=== PATIENT | female | born 1985 | race African-American/Black ===

== ENCOUNTER 2016-11-27 19:47 | Emergency (ER) | payer OTHER ==
[~2016-11-27] VITALS: Ht 170.2 cm; Wt 90.7 kg
--- NOTE | 2016-11-27 20:23 | PHYS DOC ---
Past Medical History Past Medical History: Asthma, GERD, Other Additional Past Medical Histor: LUPUS, ENLARGED LIVER, HEART MURMUR Past Surgical History: Tubal ligation Alcohol Use: Occasionally Drug Use: None Adult General Chief Complaint Chief Complaint: CHEST PAIN HPI HPI Patient is a 31 year old female who presents with chest pain. Patient reports for the past 3 weeks she has been having substernal chest pain. She describes a "piercing" pain that waxes and wanes without clear mitigating factors. She has tried taking ranitidine and ibuprofen with insufficient relief. No SOB. Patient has had similar pain in the past. No other acute complaints. Review of Systems Review of Systems Constitutional: Denies fever or chills Eyes: Denies change in visual acuity or eye pain HENT: Denies nasal congestion or sore throat Respiratory: Denies cough or shortness of breath Cardiovascular: Substernal chest pain GI: Denies abdominal pain, nausea, vomiting, bloody stools or diarrhea : Denies dysuria or hematuria Musculoskeletal: Denies back pain or joint pain Integument: Denies rash or skin lesions Neurologic: Denies headache, focal weakness or sensory changes Allergies Allergies Allergies Coded Allergies Type Severity Reaction Last Updated Verified Penicillins Allergy Severe Anaphylaxis 01/29/15 Yes Physical Exam Physical Exam Constitutional: Well developed, well nourished, no acute distress, non-toxic appearance HENT: Normocephalic, atraumatic, bilateral external ears normal Eyes: EOMI, conjunctiva normal, no discharge Neck: Normal range of motion, no stridor Cardiovascular: Heart rate normal, regular rhythm, murmur noted Lungs & Thorax: Bilateral breath sounds clear to auscultation Abdomen: Bowel sounds normal, soft, non-distended, no TTP Skin: Warm, dry, no erythema, no rash Extremities: No obvious deformity, no edema Neurologic: Alert and oriented X 3, no gross deficits noted Current Patient Data Vital Signs Vital Signs Date Time Temp Pulse Resp B/P Pulse Ox O2 Delivery O2 Flow Rate FiO2 11/27/16 19:58 98.0 68 17 117/56 99 Room Air 98.0 Lab Values Laboratory Tests Test 11/27/16 20:05 11/27/16 20:48 White Blood Count 3.7x10^3/uL (4.0-11.0) L Red Blood Count 4.14x10^6/uL (3.50-5.40) Hemoglobin 11.4g/dL (12.0-15.5) L Hematocrit 35.7% (36.0-47.0) L Mean Corpuscular Volume 86fL (79-100) Mean Corpuscular Hemoglobin 28pg (25-35) Mean Corpuscular Hemoglobin Concent 32g/dL (31-37) Red Cell Distribution Width 13.0% (11.5-14.5) Platelet Count 244x10^3/uL (140-400) Neutrophils (%) (Auto) 24% (31-73) L Lymphocytes (%) (Auto) 60% (24-48) H Monocytes (%) (Auto) 15% (0-9) H Eosinophils (%) (Auto) 1% (0-3) Basophils (%) (Auto) 0% (0-3) Neutrophils # (Auto) 0.9x10^3uL (1.8-7.7) L Lymphocytes # (Auto) 2.2x10^3/uL (1.0-4.8) Monocytes # (Auto) 0.5x10^3/uL (0.0-1.1) Eosinophils # (Auto) 0.0x10^3/uL (0.0-0.7) Basophils # (Auto) 0.0x10^3/uL (0.0-0.2) Segmented Neutrophils % 28% (35-66) L Lymphocytes % 57% (24-48) H Atypical Lymphocytes % (Manual) 6% (0-0) H Monocytes % 9% (0-10) Platelet Estimate Adequate (ADEQUATE) Sodium Level 141mmol/L (136-145) Potassium Level 3.8mmol/L (3.5-5.1) Chloride Level 104mmol/L (98-107) Carbon Dioxide Level 30mmol/L (21-32) Anion Gap 7 (6-14) Blood Urea Nitrogen 15mg/dL (7-20) Creatinine 0.7mg/dL (0.6-1.0) Estimated GFR (Cockcroft-Gault) 117.3 Glucose Level 78mg/dL (70-99) Calcium Level 9.4mg/dL (8.5-10.1) Troponin I Quantitative < 0.017ng/mL (0.000-0.055) Urine Test Negative (NEG) Laboratory Tests 11/27/16 20:05 Laboratory Tests 11/27/16 20:05 EKG EKG EKG (my read): sinus rhythm, rate 64, normal axis, intervals wnl, no acute ischemic changes Radiology/Procedures Radiology/Procedures CXR (my read): No acute abnormality Course & Med Decision Making Course & Med Decision Making Pertinent Labs and Imaging studies reviewed. (See chart for details) Patient is 31 year old female who presents with chest pain. Low suspicion for ACS given age and atypical symptoms. More likely is related to GERD or costochondritis. Will check EKG, CXR, labs. Patient declines need for pain medication at this time. Labs unremarkable, including troponin wnl; mild leukopenia but patient says this is normal for her. EKG and CXR ok per my read. Discussed results with patient. Will plan discharge home with instructions for follow up for further evaluation as outpatient and strict return precautions. Dragon Disclaimer Dragon Disclaimer This electronic medical record was generated, in whole or in part, using a voice recognition dictation system. Departure Departure Impression: Primary Impression: Atypical chest pain Disposition: 01 HOME, SELF-CARE Condition: STABLE Referrals: NO PCP (PCP) Patient Instructions: Chest Pain (Nonspecific) Additional Instructions: Thank you for allowing us to provide care today in the Emergency Department. Schedule a follow up appointment with your primary care doctor as soon as possible. Return promptly to the Emergency Department if you develop any new or concerning symptoms. RON LANGLEY MD Nov 27, 2016 20:23
[2016-11-27 20:31] LABS: BASO % 0 % (0-3); EOS % 1 % (0-3); HEMATOCRIT 35.7 % (36.0-47.0); HEMOGLOBIN 11.4 g/dL (12.0-15.5); LYMPH # 2.2 x10^3/uL (1.0-4.8); LYMPH % 60 % (24-48); MEAN CORPUSCULAR HEMOGLOBIN 28 pg (25-35); MEAN CORPUSCULAR HGB CONC 32 g/dL (31-37); MEAN CORPUSCULAR VOLUME 86 fL (79-100); MONO % 15 % (0-9); NEUT % 24 % (31-73); PLATELET COUNT 244 x10^3/uL (140-400); RED BLOOD COUNT 4.14 x10^6/uL (3.50-5.40); WHITE BLOOD COUNT 3.7 x10^3/uL (4.0-11.0)
[2016-11-27 20:39] LABS: CALCIUM 9.4 mg/dL (8.5-10.1); CREATININE 0.7 mg/dL (0.6-1.0); GFR 117.3; POTASSIUM 3.8 mmol/L (3.5-5.1)
[2016-11-27 21:06] LABS: NEG OBC UR NEG; POS OBC UR POS
[2016-11-27 21:30] LABS: PLT ESTIMATE ADEQUATE (ADEQUATE)
[2016-11-27 22:30] VITALS: BP 105/59
--- NOTE | 2016-11-28 06:36 | EKG ---
[facility] [address] [place] [address] Test Date: 2016-11-27 Test Time: 19:59:51 Pat Name: EULA PINA Department: Room: Gender: F Dry Boss: : 1985 Requested By: RON LANGLEY Order Number: [id number] Reading MD: Leonardo Ruiz Measurements Intervals [place] Rate: 64 P: 39 ND: 186 QRS: 48 QRSD: 88 T: 24 QT: 372 QTc: 388 Interpretive Statements SINUS RHYTHM Electronically Signed On 11-28-2016 10:44:30 SENIOR PROCESS ENGINEER by Leonardo Ruiz
--- NOTE | 2016-11-28 08:32 | RAD ---
Chest, 2 views, 11/27/2016: History: Chest pain The heart size and pulmonary vascularity are normal. No pulmonary infiltrates are seen. There is no evidence of pleural fluid. IMPRESSION: No acute cardiopulmonary abnormality is detected.
== END 2016-11-27 22:37 | disposition home or self-care (01) ==
LOC: ER 19:47
DX: R07.89 Other chest pain (principal); J45.909 Unspecified asthma, uncomplicated; K21.9 Gastro-esophageal reflux disease without esophagitis; M32.9 Systemic lupus erythematosus, unspecified; R16.0 Hepatomegaly, not elsewhere classified; Z88.0 Allergy status to penicillin
CPT/HCPCS: 36415; 71020; 80048; 81025; 84484; 85007; 85027; 93005; 99285-25

== ENCOUNTER 2018-02-20 18:59 | Emergency (ER) | payer OTHER ==
[2018-02-20 20:22] LABS: URINE HCG POC HCG NEGATIVE (Negative)
[2018-02-20 20:46] LABS: BILIRUBIN,URINE NEGATIVE (NEG); CLARITY,URINE CLOUDY; COLOR,URINE YELLOW; GLUCOSE,URINE NEGATIVE (NEG); NITRITE,URINE NEGATIVE (NEG); PH,URINE 6.5; PROTEIN,URINE NEGATIVE (NEG-TRACE)
[2018-02-20] MEDS: LIDO:MAALOX 1:1 20 ML SINGLE DOSE. PO (20:46)
[2018-02-20 20:48] LABS: BASO % 0 % (0-3); EOS % 1 % (0-3); HEMATOCRIT 37.2 % (36.0-47.0); HEMOGLOBIN 12.5 g/dL (12.0-15.5); LYMPH # 1.9 x10^3/uL (1.0-4.8); LYMPH % 59 % (24-48); MEAN CORPUSCULAR HEMOGLOBIN 29 pg (25-35); MEAN CORPUSCULAR HGB CONC 34 g/dL (31-37); MEAN CORPUSCULAR VOLUME 86 fL (79-100); MONO # 0.4 x10^3/uL (0.0-1.1); MONO % 12 % (0-9); NEUT # 0.9 x10^3uL (1.8-7.7); NEUT % 27 % (31-73); PLATELET COUNT 251 x10^3/uL (140-400); RED BLOOD COUNT 4.34 x10^6/uL (3.50-5.40); RED CELL DISTRIBUTION WIDTH 12.7 % (11.5-14.5); WHITE BLOOD COUNT 3.2 x10^3/uL (4.0-11.0)
[2018-02-20 20:49] LABS: ADD MAN DIFF? YES
[2018-02-20 20:57] LABS: ANION GAP 3 (6-14); BLOOD UREA NITROGEN 21 mg/dL (7-20); BUN/CREATININE RATIO 26 (6-20); CALCIUM 9.5 mg/dL (8.5-10.1); CARBON DIOXIDE 31 mmol/L (21-32); CHLORIDE 103 mmol/L (98-107); CREATININE 0.8 mg/dL (0.6-1.0); GLUCOSE 106 mg/dL (70-99); POTASSIUM 3.6 mmol/L (3.5-5.1); RBC,URINE 0 /HPF (0-2); SODIUM 137 mmol/L (136-145)
[2018-02-20 20:58] LABS: AMORPHOUS SEDIMENT,UR PRESENT /HPF; BACTERIA,URINE 0 /HPF (0-FEW); SQUAMOUS EPITHELIAL CELL,UR MOD /LPF; WBC,URINE 0 /HPF (0-4)
[2018-02-20 20:59] LABS: BARBITURATES NEG (NEG); BENZODIAZEPINES NEG (NEG); CANNABINOIDS NEG (NEG); COCAINE NEG (NEG); METHADONE NEG (NEG); OPIATES NEG (NEG); PHENCYCLIDINE NEG (NEG)
[2018-02-20 21:00] LABS: AMPHETAMINE/METHAMPHETAMINE NEG (NEG); ETHANOL, URINE NEG (NEG)
[2018-02-20 21:02] LABS: ALBUMIN 3.5 g/dL (3.4-5.0); ALBUMIN/GLOBULIN RATIO 0.7 (1.0-1.7); ALK PHOS 56 U/L (46-116); ALT (SGPT) 18 U/L (14-59); AST (SGOT) 26 U/L (15-37); LIPASE 144 U/L (73-393); TOTAL BILIRUBIN 0.3 mg/dL (0.2-1.0); TOTAL PROTEIN 8.5 g/dL (6.4-8.2)
[2018-02-20 21:03] LABS: TROPONINI < 0.017 ng/mL (0.000-0.055)
[2018-02-20 21:07] LABS: NT-PRO BNP 7 pg/mL (0-124)
[2018-02-20 21:44] LABS: % BASOS 2 % (0-3); % LYMPHS 62 % (24-48); % MONOS 6 % (0-10); % SEGS 30 % (35-66); PLT ESTIMATE ADEQUATE (ADEQUATE)
[2018-02-20] MEDS ORDERED: IOHEXOL 300 MG/ML 100ML VIAL. IV (23:15)
[2018-02-20] MEDS ORDERED: CONTRAST GIVEN MC (23:15)
[2018-02-21] MEDS: fentaNYL PF VIAL 100 MCG/2 ML VIAL IV (00:25)
== END 2018-02-21 01:11 | disposition home or self-care (01) ==
LOC: ER 02-21 01:11
DX: K21.9 Gastro-esophageal reflux disease without esophagitis (principal); J45.909 Unspecified asthma, uncomplicated; M32.9 Systemic lupus erythematosus, unspecified; Z98.51 Tubal ligation status; Z88.0 Allergy status to penicillin
CPT/HCPCS: 36415; 71275; 74022; 80053; 80307; 81001; 81025; 83690; 83880; 84484; 85007; 85025; 93005; 96374; 99285-25; J3010

== ENCOUNTER 2018-11-22 08:47 | Emergency (ER) | payer MEDICAID, OTHER ==
[~2018-11-22] VITALS: Ht 170.2 cm; Wt 73.9 kg
[~2018-11-22 08:47] MED LIST: OMEP40CA5 PO
[2018-11-22 08:48] VITALS: BP 107/54
[2018-11-22] MEDS ORDERED: NAPROXEN 500 MG TABLET PO STA (09:01)
--- NOTE | 2018-11-22 09:04 | PHYS DOC ---
Past Medical History Past Medical History: Asthma, Other Additional Past Medical Histor: LUPUS (MARYLIN YEPEZ APRN) Past Surgical History: Tubal ligation (MARYLIN YEPEZ APRN) Alcohol Use: None Drug Use: None (MARYLIN YEPEZ APRN) Adult General Chief Complaint Chief Complaint: BACK PAIN - NO INJURY HPI HPI Patient is a 33 year old female with history of lupus who presents today complaining of 10 out of 10 constant sharp low back pain that began last night while she was sitting. Patient states the pain is worse on certain movements. Patient states she has tried taking ibuprofen with no relief. Patient denies any. Denies any loss of bowel bladder function. Denies any pain radiating to bilateral lower extremities. Denies any weakness. (MARYLIN YEPEZ APRN) Review of Systems Review of Systems Constitutional: Denies fever or chills [] GI: Denies abdominal pain, nausea, vomiting, bloody stools or diarrhea [] : Denies dysuria or hematuria [] Musculoskeletal: Reports low back pain Integument: Denies rash or skin lesions [] Neurologic: Denies headache, focal weakness or sensory changes [] All other systems were reviewed and found to be within normal limits, except as documented in this note. (MARYLIN YEPEZ APRN) Current Medications Current Medications Current Medications Medications (Trade) Dose Ordered Sig/Fredy Start Time Stop Time Status Last Admin Dose Admin Acetaminophen/ Hydrocodone Bitart (Lortab 5/325) 2 tab 1X ONCE 11/22/18 09:15 11/22/18 09:16 DC 11/22/18 09:32 2 TAB Cyclobenzaprine HCl (Flexeril) 10 mg 1X ONCE 11/22/18 09:15 11/22/18 09:16 DC 11/22/18 09:32 10 MG Naproxen (Naprosyn) 500 mg 1X STAT 11/22/18 09:01 11/22/18 09:10 DC 11/22/18 09:30 500 MG Prednisone (Prednisone) 50 mg 1X ONCE 11/22/18 09:15 11/22/18 09:16 DC 11/22/18 09:31 50 MG (LYN CASPER MD) Allergies Allergies Allergies Coded Allergies Type Severity Reaction Last Updated Verified Penicillins Allergy Severe Anaphylaxis 01/29/15 Yes (LYN CASPER MD) Physical Exam Physical Exam Constitutional: Well developed, well nourished, no acute distress, non-toxic appearance. [] Abdomen: Bowel sounds normal, soft, no tenderness, no masses, no pulsatile masses. [] Skin: Warm, dry, no erythema, no rash. [] Back: Diffuse paraspinal muscle tenderness to bilateral lower lumbar spine, moderate tenderness on the coccyx, no CVA tenderness. [] Extremities: No tenderness, no cyanosis, no clubbing, ROM intact, no edema. [] Neurologic: Alert and oriented X 3, normal motor function, normal sensory function, no focal deficits noted. [] Psychologic: Affect normal, judgement normal, mood normal. [] (MARYLIN YEPEZ APRN) Current Patient Data Vital Signs Vital Signs Date Time Temp Pulse Resp B/P (MAP) Pulse Ox O2 Delivery O2 Flow Rate FiO2 11/22/18 09:32 16 100 Room Air 11/22/18 08:48 98.2 71 107/54 (71) 98.2 (LYN CASPER MD) EKG EKG [] (MARYLIN YEPEZ APRN) Radiology/Procedures Radiology/Procedures []PROCEDURE: LUMBAR SPINE 2-3V LUMBAR SPINE 2-3V History: Low back pain, posterior right hip pain Comparison: None. Findings: 3 views lumbar spine are submitted. There is very mild dextro scoliosis centered near L2. Lumbar vertebral body stature and AP alignment are preserved. Intervertebral disc spaces are adequate. No acute osseous abnormality is identified by radiographs. Impression: 1. No acute osseous abnormality is identified by radiographs. There is very mild dextroscoliosis. Electronically signed by: Blaise Lanza MD (11/22/2018 9:25 AM) [facility] DICTATED and SIGNED BY: BLAISE LANZA MD DATE: 11/22/18 0924 (MARYLIN YEPEZ APRN) Course & Med Decision Making Course & Med Decision Making Pertinent Labs and Imaging studies reviewed. (See chart for details) This is a 33-year-old female patient presenting to the ED today with low back pain that began last night, no known injury. Patient herself requested lumbar spine x-rays. Lumbar spine x-rays interpreted by radiologist are negative for any acute findings. Patient was provided a pain clinic doctor for follow-up. Discharged with diclofenac, cyclobenzaprine and Medrol Dosepak. (MARYLIN YEPEZ APRN) Dragon Disclaimer Dragon Disclaimer This electronic medical record was generated, in whole or in part, using a voice recognition dictation system. (MARYLIN YEPEZ JG) Departure Departure Impression: Primary Impression: Low back pain Disposition: 01 HOME, SELF-CARE Condition: STABLE Referrals: KRISTIE CLIFTON MD (PCP) Follow up next week PATRICIA GIBBONS MD follow up next week AJ MOORE MD follow up in 1 week Patient Instructions: Back Pain, Adult Additional Instructions: You were evaluated in the emergency room for low back pain. Your lumbar spine x- rays were negative for any acute findings. We provided you a pain clinic doctor as well as the neurosurgeon to follow-up as an outpatient. Scripts Methylprednisolone (MEDROL) 4 Mg Tab.ds.pk 1 PKG PO UD, #1 PKG Prov: MARYLIN YEPEZ JG 11/22/18 Cyclobenzaprine Hcl (CYCLOBENZAPRINE HCL) 10 Mg Tablet 1 TAB PO TID, #30 TAB Prov: MARYLIN YEPEZ APRN 11/22/18 Diclofenac Sodium (DICLOFENAC SODIUM) 50 Mg Tablet.dr 1 TAB PO BID, #20 TAB 0 Refills Prov: MARYLIN YEPEZ APRN 11/22/18 Problem Qualifiers Primary Impression: Low back pain Chronicity: acute Back pain laterality: midline Sciatica presence: without sciatica Qualified Codes: M54.5 - Low back pain MARYLIN YEPEZ APRN Nov 22, 2018 09:04 LYN CASPER MD Nov 22, 2018 14:29
[2018-11-22] MEDS ORDERED: predniSONE 10 MG TABLET PO ONE (09:15)
[2018-11-22] MEDS ORDERED: CYCLOBENZAPRINE 10 MG TABLET. PO ONE (09:15)
[2018-11-22] MEDS ORDERED: HYDROcodone/APAP 5/325MG 1 TAB TABLET PO ONE (09:15)
--- NOTE | 2018-11-22 09:29 | RAD ---
LUMBAR SPINE 2-3V History: Low back pain, posterior right hip pain Comparison: None. Findings: 3 views lumbar spine are submitted. There is very mild dextro scoliosis centered near L2. Lumbar vertebral body stature and AP alignment are preserved. Intervertebral disc spaces are adequate. No acute osseous abnormality is identified by radiographs. Impression: 1. No acute osseous abnormality is identified by radiographs. There is very mild dextroscoliosis. Electronically signed by: Luca Albert MD (11/22/2018 9:25 AM) [facility]
[2018-11-22] MEDS ORDERED: CYCL10TA2 PO (10:00)
[2018-11-22] MEDS ORDERED: DICL50TA4 PO (10:00)
[2018-11-22] MEDS ORDERED: METH4TAB2 PO (10:00)
== END 2018-11-22 10:05 | disposition home or self-care (01) ==
LOC: ER 08:47
DX: M54.5 Low back pain (principal); J45.909 Unspecified asthma, uncomplicated; Z98.51 Tubal ligation status; Z88.0 Allergy status to penicillin
CPT/HCPCS: 72100; 99284; J7512

== ENCOUNTER 2019-05-11 10:56 | Emergency (ER) | payer MEDICAID ==
[~2019-05-11] VITALS: Ht 170.2 cm; Wt 77.1 kg
[~2019-05-11 10:56] MED LIST changes: +CYCL10TA2 PO; +DICL50TA4 PO; +METH4TAB2 PO
[2019-05-11] MEDS ORDERED: AZITHROMYCIN 250 MG TABLET. PO ONE (11:30)
[2019-05-11] MEDS ORDERED: KETOROLAC 30 MG/ML VIAL. IV ONE (11:30)
[2019-05-11] MEDS ORDERED: ONDANSETRON PF 4 MG/2 ML VIAL. IV ONE (11:30)
[2019-05-11] MEDS ORDERED: cefTRIAXone IM 250 MG VIAL IM ONE (11:30)
[2019-05-11 11:36] LABS: BILIRUBIN,URINE NEGATIVE (NEG); CLARITY,URINE CLEAR; COLOR,URINE YELLOW; NITRITE,URINE NEGATIVE (NEG); PROTEIN,URINE NEGATIVE (NEG-TRACE)
--- NOTE | 2019-05-11 11:40 | PHYS DOC ---
Past Medical History Past Medical History: Asthma, Other Additional Past Medical Histor: LUPUS Past Surgical History: Tubal ligation, Other Additional Past Surgical Histo: BONE MARROW BIOPSY Alcohol Use: None Drug Use: None Adult General Chief Complaint Chief Complaint: ABDOMINAL PAIN HPI HPI Patient is a 34 year old female who presents with states is not due for her period until May 14 but her periods are irregular. Patient states she is here today because she's been having vaginal bleeding last night and today that is more than usual and she is wearing a tampon and pad and is going through them an hour at a time. Patient states she is also having lower abdominal cramping with sharp pains and bilateral low back pain. Patient states she's had some nausea and dizziness. Patient rates her pain a 6 out of 10. Patient states she took 600 mg of ibuprofen at 3:00 this morning. Patient states she also has some vaginal discharge for the last month. Review of Systems Review of Systems Constitutional: Denies fever or chills [] Eyes: Denies change in visual acuity, redness, or eye pain [] HENT: Denies nasal congestion or sore throat [] Respiratory: Denies cough or shortness of breath [] Cardiovascular: No additional information not addressed in HPI [] GI: Low bilateral abdominal pain, nausea, denies vomiting, bloody stools or diarrhea [] : Vaginal bleeding. Denies dysuria or hematuria [] Musculoskeletal: Denies back pain or joint pain [] Integument: Denies rash or skin lesions [] Neurologic: Denies headache, focal weakness or sensory changes [] Endocrine: Denies polyuria or polydipsia [] All other systems were reviewed and found to be within normal limits, except as documented in this note. Current Medications Current Medications Current Medications Medications (Trade) Dose Ordered Sig/Fredy Start Time Stop Time Status Last Admin Dose Admin Azithromycin (Zithromax) 1,000 mg 1X ONCE 05/11/19 11:30 05/11/19 11:31 DC 05/11/19 11:54 1,000 MG Ceftriaxone Sodium (Rocephin Im) 250 mg 1X ONCE 05/11/19 11:30 05/11/19 11:33 DC 05/11/19 11:55 250 MG Ketorolac Tromethamine (Toradol 30mg Vial) 30 mg 1X ONCE 05/11/19 11:30 05/11/19 11:31 DC 05/11/19 11:55 30 MG Ondansetron HCl (Zofran) 4 mg 1X ONCE 05/11/19 11:30 05/11/19 11:31 DC 05/11/19 11:55 4 MG Allergies Allergies Allergies Coded Allergies Type Severity Reaction Last Updated Verified Penicillins Allergy Intermediate Unknown 05/11/19 Yes Physical Exam Physical Exam Constitutional: Well developed, well nourished, no acute distress, non-toxic appearance. [] HENT: Normocephalic, atraumatic, bilateral external ears normal, oropharynx moist, no oral exudates, nose normal. [] Eyes: PERRLA, EOMI, conjunctiva normal, no discharge. [] Neck: Normal range of motion, no tenderness, supple, no stridor. [] Cardiovascular:Heart rate regular rhythm, no murmur [] Lungs & Thorax: Bilateral breath sounds clear to auscultation [] Abdomen: Bowel sounds normal, soft, Bilateral lower quadrants tenderness, no masses, no pulsatile masses. [] Skin: Warm, dry, no erythema, no rash. [] Back: No tenderness, no CVA tenderness. [] Extremities: No tenderness, no cyanosis, no clubbing, ROM intact, no edema. [] Neurologic: Alert and oriented X 3, normal motor function, normal sensory function, no focal deficits noted. [] Psychologic: Affect normal, judgement normal, mood normal. [] Current Patient Data Vital Signs Vital Signs Date Time Temp Pulse Resp B/P (MAP) Pulse Ox O2 Delivery O2 Flow Rate FiO2 05/11/19 11:14 97.9 60 18 115/80 (92) 98 Room Air 97.9 Lab Values Laboratory Tests Test 05/11/19 11:07 05/11/19 11:28 05/11/19 11:32 Urine Collection Type Unknown Urine Color Yellow Urine Clarity Clear Urine pH 6.0 Urine Specific Jansen 1.025 Urine Protein Negative mg/dL (NEG-TRACE) Urine Glucose (UA) Negative mg/dL (NEG) Urine Ketones (Stick) Negative mg/dL (NEG) Urine Blood Negative (NEG) Urine Nitrite Negative (NEG) Urine Bilirubin Negative (NEG) Urine Urobilinogen Dipstick 1.0 mg/dL (0.2 mg/dL) Urine Leukocyte Esterase Negative (NEG) Urine RBC 0 /HPF (0-2) Urine WBC Occ /HPF (0-4) Urine Squamous Epithelial Cells Few /LPF Urine Bacteria 0 /HPF (0-FEW) Urine Mucus Mod /LPF POC Urine HCG, Qualitative Hcg negative (Negative) White Blood Count 2.9 x10^3/uL (4.0-11.0) L Red Blood Count 4.29 x10^6/uL (3.50-5.40) Hemoglobin 12.1 g/dL (12.0-15.5) Hematocrit 37.4 % (36.0-47.0) Mean Corpuscular Volume 87 fL (79-100) Mean Corpuscular Hemoglobin 28 pg (25-35) Mean Corpuscular Hemoglobin Concent 32 g/dL (31-37) Red Cell Distribution Width 13.1 % (11.5-14.5) Platelet Count 224 x10^3/uL (140-400) Neutrophils (%) (Auto) 25 % (31-73) L Lymphocytes (%) (Auto) 57 % (24-48) H Monocytes (%) (Auto) 16 % (0-9) H Eosinophils (%) (Auto) 1 % (0-3) Basophils (%) (Auto) 1 % (0-3) Neutrophils # (Auto) 0.7 x10^3/uL (1.8-7.7) L Lymphocytes # (Auto) 1.7 x10^3/uL (1.0-4.8) Monocytes # (Auto) 0.5 x10^3/uL (0.0-1.1) Eosinophils # (Auto) 0.0 x10^3/uL (0.0-0.7) Basophils # (Auto) 0.0 x10^3/uL (0.0-0.2) Platelet Estimate Pending Sodium Level 139 mmol/L (136-145) Potassium Level 4.8 mmol/L (3.5-5.1) Chloride Level 107 mmol/L (98-107) Carbon Dioxide Level 25 mmol/L (21-32) Anion Gap 7 (6-14) Blood Urea Nitrogen 20 mg/dL (7-20) Creatinine 0.7 mg/dL (0.6-1.0) Estimated GFR (Cockcroft-Gault) 115.2 BUN/Creatinine Ratio 29 (6-20) H Glucose Level 99 mg/dL (70-99) Calcium Level 8.9 mg/dL (8.5-10.1) Total Bilirubin 0.4 mg/dL (0.2-1.0) Aspartate Amino Transferase (AST) 29 U/L (15-37) Alanine Aminotransferase (ALT) 18 U/L (14-59) Alkaline Phosphatase 43 U/L (46-116) L Total Protein 8.2 g/dL (6.4-8.2) Albumin 3.4 g/dL (3.4-5.0) Albumin/Globulin Ratio 0.7 (1.0-1.7) L Laboratory Tests 05/11/19 11:32 Laboratory Tests 05/11/19 11:32 Microbiology 05/11/19 Wet Prep - Final, Complete EKG EKG [] Radiology/Procedures Radiology/Procedures [] Impressions: [facility] [address] [place] [address] IMAGING REPORT Signed PATIENT: EULA PINA ACCOUNT: [id number] : 1985 LOCATION: ER AGE: 34 SEX: F EXAM STATUS: REG ER ORD. PHYSICIAN: KAUR VARGAS APRN REASON: vaginal bleeding, abd pain PROCEDURE: PELVIS W/TV Transabdominal and Transvaginal sonography of the pelvis Clinical indications: Vaginal bleeding. Transabdominal sonography: The urinary bladder is empty. Uterus and ovaries are not visualized. Therefore, transvaginal sonography will be performed. No free fluid is evident. Transvaginal sonography: The uterus is retroverted. The endometrial canal measures 7 mm in thickness which is normal. No hyperemia is seen within the endometrial canal. Multiple uterine fibroids are seen. The largest measures 2.8 cm within the anterior upper body. The right ovary is normal and measures 4.3 cm and 1.8 cm and 1.2 cm in size. The left ovary measures 2.7 cm and 1.1 cm and 1.4 cm in size and is normal. Color Doppler flow is seen within both ovaries. No adnexal mass or free fluid is evident. IMPRESSION: Multiple uterine fibroids. Electronically signed by: James Buchanan MD (05/11/2019 12:24 PM) [facility] DICTATED and SIGNED BY: JAMES BUCHANAN MD DATE: 05/11/19 1224 Course & Med Decision Making Course & Med Decision Making Patient is a 34 year old female who presents with states is not due for her pe riod until May 14 but her periods are irregular. Patient states she is here today because she's been having vaginal bleeding last night and today that is more than usual and she is wearing a tampon and pad and is going through them an hour at a time. Patient states she is also having lower abdominal cramping with sharp pains and bilateral low back pain. Patient states she's had some nausea and dizziness. Patient rates her pain a 6 out of 10. Patient states she took 600 mg of ibuprofen at 3:00 this morning. Patient states she also has some vaginal discharge for the last month. Alert and oriented. Skin pink warm and dry. Vital signs within normal limits. Afebrile. Ambulatory with a steady gait. Mucous membranes moist. Patient states that she would like to be tested for sexually she has been diseases and treated today. Patient does have an allergy to penicillin and when asked she states she is unsure of what the allergy is nauseous told as a child not to take it. Bilateral lower quadrants of her abdomen are tender to palpation. Patient denies dysuria symptoms. Abdomen is soft and nontender in all other quadrants. No CVA tenderness. Patient denies chest pain, shortness of air, numbness or tingling, palpitations, visual changes, vomiting, constipation or diarrhea. No extremity edema. Patient is treated for sexually transmitted diseases with azithromycin and Rocephin. Pelvic US shows Multiple uterine fibroids. Patient to follow up with rn first assist as soon as possible. Pelvic Exam: [employer] present Abdomen: Bilateral lower quadrants External Genitalia: Normal Skin Speculum: Normal vaginal mucosa, normal cervical discharge, Mild vaginal bleeding but no clots seen Bimanual: No adnexal masses or tenderness, No CMT Dragon Disclaimer Dragon Disclaimer This electronic medical record was generated, in whole or in part, using a voice recognition dictation system. Departure Departure Impression: Primary Impression: Uterine fibroid Additional Impression: Bacterial vaginosis Disposition: 01 HOME, SELF-CARE Condition: STABLE Referrals: KRISTIE CLIFTON MD (PCP) Patient Instructions: Uterine Fibroid, [id number] Additional Instructions: Either follow-up with your primary care to get into a rn first assist or call with the rn first assist that we have provided for you. Continue taking ibuprofen and try heating pad to help with pain. Scripts Metronidazole (METRONIDAZOLE) 500 Mg Tablet 1 TAB PO BID, #14 TAB Prov: KAUR VARGAS APRN 05/11/19 Hydrocodone/Apap 5-325 (NORCO 5-325 TABLET) 1 Each Tablet 1 TAB PO PRN Q6HRS PRN for PAIN, #8 TAB 0 Refills Prov: KAUR VARGAS APRN 05/11/19 Problem Qualifiers Primary Impression: Uterine fibroid Uterine leiomyoma location: unspecified location Qualified Codes: D25.9 - Leiomyoma of uterus, unspecified KAUR VARGAS APRN May 11, 2019 11:40
[2019-05-11 12:09] LABS: CALCIUM 8.9 mg/dL (8.5-10.1); CREATININE 0.7 mg/dL (0.6-1.0); GFR 115.2
[2019-05-11 12:12] LABS: BASO % 1 % (0-3); EOS % 1 % (0-3); HEMATOCRIT 37.4 % (36.0-47.0); HEMOGLOBIN 12.1 g/dL (12.0-15.5); LYMPH # 1.7 x10^3/uL (1.0-4.8); LYMPH % 57 % (24-48); MEAN CORPUSCULAR HEMOGLOBIN 28 pg (25-35); MEAN CORPUSCULAR HGB CONC 32 g/dL (31-37); MEAN CORPUSCULAR VOLUME 87 fL (79-100); MONO # 0.5 x10^3/uL (0.0-1.1); MONO % 16 % (0-9); NEUT # 0.7 x10^3/uL (1.8-7.7); NEUT % 25 % (31-73); PLATELET COUNT 224 x10^3/uL (140-400); RED BLOOD COUNT 4.29 x10^6/uL (3.50-5.40); RED CELL DISTRIBUTION WIDTH 13.1 % (11.5-14.5); WHITE BLOOD COUNT 2.9 x10^3/uL (4.0-11.0)
[2019-05-11 12:15] LABS: ALBUMIN 3.4 g/dL (3.4-5.0); ALBUMIN/GLOBULIN RATIO 0.7 (1.0-1.7); TOTAL BILIRUBIN 0.4 mg/dL (0.2-1.0); TOTAL PROTEIN 8.2 g/dL (6.4-8.2)
[2019-05-11 12:16] LABS: POTASSIUM 4.8 mmol/L (3.5-5.1)
--- NOTE | 2019-05-11 12:26 | RAD ---
Transabdominal and Transvaginal sonography of the pelvis Clinical indications: Vaginal bleeding. Transabdominal sonography: The urinary bladder is empty. Uterus and ovaries are not visualized. Therefore, transvaginal sonography will be performed. No free fluid is evident. Transvaginal sonography: The uterus is retroverted. The endometrial canal measures 7 mm in thickness which is normal. No hyperemia is seen within the endometrial canal. Multiple uterine fibroids are seen. The largest measures 2.8 cm within the anterior upper body. The right ovary is normal and measures 4.3 cm and 1.8 cm and 1.2 cm in size. The left ovary measures 2.7 cm and 1.1 cm and 1.4 cm in size and is normal. Color Doppler flow is seen within both ovaries. No adnexal mass or free fluid is evident. IMPRESSION: Multiple uterine fibroids. Electronically signed by: Angel Buchanan MD (05/11/2019 12:24 PM) [facility]
[2019-05-11 12:38] LABS: BACTERIA,URINE 0 /HPF (0-FEW); RBC,URINE 0 /HPF (0-2); SQUAMOUS EPITHELIAL CELL,UR FEW /LPF; WBC,URINE OCC /HPF (0-4)
[2019-05-11] MEDS ORDERED: HYDR-3164 PO (12:54)
[2019-05-11] MEDS ORDERED: METR-34 PO (12:56)
[2019-05-11 13:00] VITALS: BP 121/67
[2019-05-11 13:42] LABS: % EOS 3 % (0-5); % LYMPHS 69 % (24-48); % MONOS 11 % (0-10); % SEGS 17 % (35-66)
[2019-05-11 13:43] LABS: PLT ESTIMATE ADEQUATE (ADEQUATE)
[2019-05-13 18:09] LABS: GC PROBE Negative (Negative)
== END 2019-05-11 13:10 | disposition home or self-care (01) ==
LOC: ER 10:56
DX: D25.9 Leiomyoma of uterus, unspecified (principal); N76.0 Acute vaginitis; B96.89 Other specified bacterial agents as the cause of diseases classified elsewhere; R42 Dizziness and giddiness; R11.0 Nausea; J45.909 Unspecified asthma, uncomplicated; Z98.51 Tubal ligation status; Z88.0 Allergy status to penicillin
CPT/HCPCS: 36415; 76830; 76856; 80053; 81001; 81025; 85007; 85025; 87491; 87591; 96372; 96374; 96375; 99285; J0696; J1885; J2405; Q0111; Q0144